=== PATIENT | male | born 1970 | race Two or more races ===

== ENCOUNTER 2017-02-27 06:55 | Observation (INO) | payer OTHER ==
[2017-02-27] MEDS ORDERED: IOPAMIDOL 370 (76%) 100 ML VIAL IV ONE (06:56)
[2017-02-27] MEDS ORDERED: LACTATED RINGERS 1,000 ML ONE ×2 (07:11→09:25)
[2017-02-27] MEDS ORDERED: DIAZEPAM 5 MG/ML SYRINGE 2 ML ONE ×2 (07:11→09:25)
[2017-02-27] MEDS ORDERED: ONDANSETRON 4 MG/2ML 2 ML VIAL ONE (07:11)
[2017-02-27 07:25] LABS: ABSOLUTE NEUTROPHIL COUNT 3.7 K/mm3 (1.8-7.7); BASO # 0.1 K/mm3 (0.0-0.2); BASO % 0.6 % (0.2-1.0); EOS # 0.4 (0.0-0.5); EOS % 3.8 % (0.9-2.9); HEMATOCRIT 48.3 % (32.0-52.0); HEMOGLOBIN 15.3 gm/l (14.0-18.0); IMM NEUT # 0.1 K/mm3 (0-0.2); IMM NEUT% 0.7 % (0-1); LYMPH # 5.7 (1.0-4.8); LYMPH % 52.2 % (15-45); MEAN CELL VOLUME 89.9 fl (80.0-94.0); MEAN CORPUSCULAR HEMOGLOBIN 28.5 pg (27.0-31.0); MEAN CORPUSCULAR HGB CONC 31.7 g/dl (33.0-37.0); MEAN PLATELET VOLUME 9.7 fl (7.4-10.4); MONO # 0.9 (0.0-0.8); MONO % 8.6 % (4-12); NEUT % 34.1 % (43-75); PLATELET COUNT 280 K/mm3 (130-400); RED CELL DISTRIBUTION WIDTH 13.5 % (11.5-14.5)
[2017-02-27 07:46] LABS: ALB/GLOB RATIO 1.1 (>1.0)
[2017-02-27] MEDS ORDERED: POTASSIUM CHLORIDE 20 MEQ TAB.PRT.SR ONE (08:07)
[2017-02-27 09:03] LABS: SPECIFIC GRAVITY 1.025 (1.001-1.030); URINE BILIRUBIN NEGATIVE (NEGATIVE); URINE BLOOD NEGATIVE (NEGATIVE); URINE GLUCOSE (UA) NEGATIVE (NEGATIVE); URINE LEUKOCYTE ESTERASE NEGATIVE (NEGATIVE); URINE NITRITE NEGATIVE (NEGATIVE); URINE PROTEIN 1+ (NEGATIVE); URINE UROBILINOGEN NORMAL (0-1 mg/dl)
[2017-02-27 09:05] LABS: URINE APPEARANCE CLEAR; URINE COLOR YELLOW
[2017-02-27 09:06] LABS: ATYPICAL LYMPHOCYTE 1 %; BAND 0 % (0-10); BASOPHIL 0 % (0-1); EOSINOPHIL 1 % (1-3); LYMPHOCYTE 56 % (15-45); MONOCYTE 12 % (4-12); NEUTROPHILS 30 % (43-75); PLATELET ESTIMATE NORMAL (NORMAL); TOTAL CELLS COUNTED 100
[2017-02-27 09:12] LABS: URINE EPITHELIAL CELLS 0-1 /hpf; URINE RBC RARE /hpf; URINE WBC NEG /hpf
[2017-02-27 09:13] LABS: URINE BACTERIA 0
[2017-02-27] MEDS ORDERED: MECLIZINE HCL 25 MG TABLET ONE (10:35)
--- NOTE | 2017-02-27 11:36 | CT ---
HEAD W/O CON History: Dizziness. Comparison: None. Procedure: 1 mm axial images were obtained through the head from the vertex to the base of the skull without intravenous contrast. Stacked reconstructed 5 mm images were then obtained in the axial, coronal and sagittal planes. Findings: The lateral ventricles are of normal size and shape without evidence of hydrocephalus. No evidence of midline shift is seen. No mass or mass-effect is observed. No evidence of intra- or extra-axial fluid collections or hemorrhage is identified. The booth/white differentiation is within expected. The basilar cisterns remain uneffaced. The posterior fossa structures are unremarkable. No acute osseous abnormalities are identified. There is evidence of frontal and ethmoid sinus disease. Impression: 1. No findings of acute intracranial hemorrhage. 2. Frontal and ethmoid sinus disease.
--- NOTE | 2017-02-27 11:43 | CT ---
CTA HEAD W/ POST PROCESS History: Vertigo. Comparison: None. Procedure: 1 mm axial images were obtained through the head following the administration of 100cc's of Isovue-370 intravenous contrast. Stacked reconstructed 3 mm images were then photographed in the axial, coronal and sagittal planes. 3-D reconstructed MIP images were also performed on the scanner workstation. Findings: The orbits appear to be grossly unremarkable. There is evidence of maxillary, frontal and ethmoid sinus disease. The parotid glands and posterior pharyngeal soft tissues appear to be unremarkable. There is a normal course and caliber of the intracranial carotid arteries. The middle and anterior cerebral branches appear to be appropriate. No focal aneurysm or stenosis is observed. There is no pruning of the distal middle cerebral artery branches identified. The vertebral arteries demonstrate a mildly dominant right vertebral artery. The superior portion of the left vertebral artery appears to be of smaller caliber than the remainder of the left vertebral artery, though this is likely congenital finding. The basilar artery is of normal caliber. No basilar tip aneurysm is seen. The posterior cerebral vessels appear to be appropriate. Impression: 1. Frontal, ethmoid and maxillary sinus disease. 2. No focal stenosis or aneurysm visualized.
--- NOTE | 2017-02-27 11:49 | CT ---
CTA CAROTID W/ POST PROCESS History: Vertigo. Comparison: None. Procedure: 1 mm axial images were obtained through the neck following the administration of 80cc's of Isovue-370 intravenous contrast. Stacked reconstructed 3 mm images were then photographed in the axial, coronal and sagittal planes. 3-D reconstructed MIP images were also performed on the scanner workstation. Findings: Images demonstrate a normal appearance of the thyroid gland. No enlarged cervical chain adenopathy is seen. The parotid and submandibular glands appear to be appropriate. The visualized mediastinum appears to be appropriate. The visualized lung quach are unremarkable though visualization is limited due to what appears to be respiratory motion artifact. Little significant atherosclerotic disease is observed involving the aorta and great vessel branches. The subclavian artery appears to be of normal contour with no focal stenosis identified. The left common carotid artery also demonstrates a normal course and caliber. There is no significant disease identified within the internal or external carotid branches. The distal portion of the internal carotid artery is unremarkable. The innominate artery and right subclavian artery are appropriate. The right common carotid artery demonstrates a normal course and caliber. No significant disease is identified at the carotid bifurcation. The internal and external carotid branches are widely patent. The vertebral arteries demonstrates slight dominance of the right vertebral artery. Both vertebral arteries appear to be patent. There is note made of decreased caliber of the terminal aspect of the left vertebral artery prior to the origination of the basilar artery, though this is likely congenital. No focal stenosis is visualized. Impression: 1. No significant atherosclerotic disease observed. There is no focal arterial stenosis identified. 2. 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 3. Pansinus disease.
--- NOTE | 2017-02-27 12:51 | RAD ---
History: Vertigo. Comparison: 04/24/2009. Technique: 2 views Findings: Examination demonstrates a low inspiratory volume. The heart size appears to be stable. No consolidation, effusion or pneumothorax is visualized. The hilar and mediastinal structures are intact. Impression: 1. A low inspiratory volume. 2. An otherwise negative two-view chest.
[2017-02-27] MEDS ORDERED: BISACODYL 10 MG SUP PR PRN (14:19)
[2017-02-27] MEDS ORDERED: BLISTEX LIPSTICK 1 EACH TP PRN (14:19)
[2017-02-27] MEDS ORDERED: CALCIUM CARBONATE 500 MG TAB.CHEW PO PRN (14:19)
[2017-02-27] MEDS ORDERED: BISACODYL 5 MG TABLET.EC PO PRN (14:19)
[2017-02-27] MEDS ORDERED: MAGNESIUM HYDROXIDE 30 ML UDCUP PO PRN (14:19)
[2017-02-27] MEDS ORDERED: MENTHOL/CETYLPYRD 1 EACH LOZENGE PO PRN (14:19)
[2017-02-27] MEDS ORDERED: ACETAMINOPHEN 325 MG TABLET PO PRN (14:19)
[2017-02-27] MEDS ORDERED: SODIUM CHLORIDE 0.9% 100 ML IV PRN (14:19)
[2017-02-27] MEDS ORDERED: MECLIZINE HCL 25 MG TABLET PO PRN (14:21)
[2017-02-27] MEDS ORDERED: ONDANSETRON 4 MG/2ML 2 ML VIAL IV PRN (14:21)
[2017-02-27] MEDS ORDERED: SCOPOLAMINE 1.5 MG/72 HR 1 EACH PATCH TD SCH (14:30)
[2017-02-27] MEDS ORDERED: SODIUM CHLOR 0.9% w 40mEq KCL 1,000 ML IV SCH (14:30)
[2017-02-27] MEDS ORDERED: PUMP TUBING ONE (14:41)
[2017-02-27 14:49] VITALS: BMI 44.7
[2017-02-27] MEDS: DOCUSATE SODIUM 100 MG CAPSULE PO SCH (21:33)
[2017-02-28 07:10] LABS: ABSOLUTE NEUTROPHIL COUNT 7.3 K/mm3 (1.8-7.7); BASO # 0.1 K/mm3 (0.0-0.2); BASO % 0.5 % (0.2-1.0); EOS # 0.2 (0.0-0.5); EOS % 1.3 % (0.9-2.9); HEMATOCRIT 45.4 % (32.0-52.0); HEMOGLOBIN 14.9 gm/l (14.0-18.0); IMM NEUT% 0.3 % (0-1); LYMPH # 3.1 (1.0-4.8); LYMPH % 27.2 % (15-45); MEAN CELL VOLUME 89.2 fl (80.0-94.0); MEAN CORPUSCULAR HEMOGLOBIN 29.3 pg (27.0-31.0); MEAN CORPUSCULAR HGB CONC 32.8 g/dl (33.0-37.0); MEAN PLATELET VOLUME 9.7 fl (7.4-10.4); MONO # 0.8 (0.0-0.8); MONO % 6.9 % (4-12); NEUT % 63.8 % (43-75); PLATELET COUNT 261 K/mm3 (130-400); RED CELL DISTRIBUTION WIDTH 13.8 % (11.5-14.5)
[2017-02-28 07:29] LABS: CALCIUM 8.8 mg/dL (8.6-10.3)
[2017-02-28 07:35] VITALS: BP 115/57
--- NOTE | 2017-02-28 07:59 | HP ---
SELAM ESTRADA [id number] DATE OF ADMISSION: February 27, 2017 CHIEF COMPLAINT: Dizziness. HISTORY OF PRESENT ILLNESS: The patient is a 46-year-old male without chronic medical conditions who presented to the [facility] Emergency Department with complaints of vertigo symptoms which started upon awakening this morning. He reports that he has been having a spinning sensation which is constant. He gets extremely nauseated whenever he sits up. His symptoms do not seem to be affected as much by head movements from left to right but definitely when he sits up he develops worsening symptoms of nausea and diaphoresis. He reports about five episodes of emesis so far today. He spent about five hours in the emergency department in an attempt to get his symptoms resolved, but continued to have severe nausea and vertigo despite several doses of diazepam and meclizine. He was referred to the hospitalist service for observation. REVIEW OF SYSTEMS: His review of systems is negative for any fevers or chills. He has had no recent upper respiratory symptoms. He had some transient right ear pain about a week ago but nothing persistent, no sore throat. He has had no chest pain, shortness of breath or palpitations. No heartburn symptoms, no focal abdominal pain, no hematemesis or melena, no diarrhea or constipation. No complaints of headaches, fainting, blackouts or seizures. No urinary complaints. His review of systems is otherwise negative. PAST MEDICAL HISTORY: Is negative for any chronic medical conditions except for some mild reflux and seasonal allergic rhinitis. He denies any previous hospitalizations. PAST SURGICAL HISTORY: Negative. ALLERGIES: NO KNOWN DRUG ALLERGIES. CURRENT MEDICATIONS: None. FAMILY HISTORY: Positive for a mother with diabetes. SOCIAL HISTORY: He is . They have two children. He quit smoking about 20 years ago after a 7 pack-year history of smoking. He drinks alcohol just occasionally. Denies any illicit drug use. His primary care provider is Booker Burks nurse practitioner. PHYSICAL EXAMINATION: VITAL SIGNS: Temperature is 97.5, respirations 16, pulse 97, blood pressure 147/94. GENERAL: This is an obese male in no acute distress. HEENT: Shows pupils equal, round and reactive to light. Extraocular movements are intact. Tympanic membranes are clear bilaterally. Moist, pink oral mucosa is noted. NECK: Nontender, without lymphadenopathy, thyromegaly or carotid bruits. CHEST: Lungs are clear to auscultation bilaterally. CARDIOVASCULAR: Exam reveals a regular rate and rhythm without a murmur. ABDOMEN: Is obese, soft, nontender, nondistended with positive bowel sounds. EXTREMITIES: Show no peripheral edema. Dorsalis pedis pulses are 2+ in both feet. NEUROLOGIC: Cranial nerves II through XII are intact. No focal weakness or abnormalities are seen. DIAGNOSTIC IMAGING STUDIES: Include: 1. CTA of the neck and the head. 2. Brain CT. 3. Chest x-ray. With no acute findings identified. LABORATORY STUDIES: Included a CBC with a white count mildly elevated at 11,000. Hemoglobin was 15.3, platelet count was 280,000. Differential showed 30% neutrophils, 0 bands, 56% lymphocytes, 3.8% eosinophils. Chemistry profile showed a sodium of 136, mild hypokalemia with a potassium of 3.2. Carbon dioxide was normal 23. BUN was normal at 17 with a creatinine of 0.8. He did have some hyperglycemia with a glucose of 178. It is unclear if that was as fasting sample. His troponin I was less than 0.01. ASSESSMENT AND PLAN: 1. He will be referred to the hospitalist service for observation. 2. He will be given potassium replacement and IV fluids. 3. We will get a fasting metabolic panel in the morning to reassess his glucose and screen for diabetes. He is at risk for diabetes because of his severe obesity and his family history. 4. For his vertigo which I suspect is benign and positional, he will be given a scopolamine patch and meclizine as needed. 5. Other diagnoses include nausea and vomiting likely due to the vertigo. We will ask physical therapy to evaluate and treat the patient tomorrow with anticipated discharge tomorrow. cc: Booker Burks N.P.
[2017-02-28] MEDS: DOCUSATE SODIUM 100 MG CAPSULE PO SCH (10:10)
--- NOTE | 2017-02-28 13:20 | DS ---
ANTELMO POSADAS SELAM [id number] DATE OF ADMISSION: February 27, 2017 DATE OF DISCHARGE: February 28, 2017 DISCHARGE DIAGNOSES: Vertigo, suspect viral etiology versus benign positional vertigo. OTHER DIAGNOSES: Include: 1. Nausea and vomiting with moderate dehydration. 2. Obesity. 3. Hypokalemia probably due to gastrointestinal losses. 4. Hyperglycemia thought to be due to stress. SUMMARY OF ADMISSION AND HOSPITAL COURSE: The patient is a 46-year-old male who awoke with vertigo symptoms and intractable vomiting. He threw up about five times prior to referral to the hospitalist service for observation. He was monitored in the emergency department for about six hours, given several doses of diazepam, including meclizine and fluids, but his symptoms persisted so he was monitored in the hospital overnight on a scopolamine patch. He had no further complaints of vomiting or vertigo after the scopolamine was placed. He did get potassium replacement for a potassium level of 3.2 on admission. He had a glucose level elevated at 178 on admission. Fasting glucose the following morning was 108, and his potassium level improved to 4.0. He is felt to be medically stable for discharge. PHYSICAL EXAM: VITAL SIGNS: Vitals at discharge showed a temperature of 97.9, pulse 78, blood pressure is 115/57, respirations 18, oxygen saturation 94% on room air. Body mass index 44.7, weight is 122 kilograms. GENERAL: This is an obese male in no acute distress. HEENT: Pupils equal, round and reactive to light. Extraocular movements are intact. No nystagmus is present. NECK: Supple without lymphadenopathy or thyromegaly. LUNGS: Are clear to auscultation bilaterally. CARDIOVASCULAR: Exam reveals a regular rate and rhythm without a murmur. ABDOMEN: Is soft, nontender, nondistended with positive bowel sounds. DIAGNOSTIC IMAGING STUDIES: In the emergency department included a CTA of the head and neck as well as a brain CT. No acute findings were found. DISPOSITION: Home. DISCHARGE CONDITION: Good. REFERRALS: He is given a work release starting on February 27, 2017 lasting through March 01, 2017 with a return to work on March 02, 2017. DISCHARGE MEDICATIONS: He is prescribed a discharge medication of scopolamine patch 1.5 mg every 72 hours. Change every 72 hours as needed. He was discharged with a patch on his ear and do not anticipate he will need to get the prescription filled, but in case he will have it. DISCHARGE DIET: He will be on a regular diet. FOLLOWUP: He will follow up with his primary care provider, Booker Burks, nurse practitioner, as needed on March 11, 2017 at 11:00 a.m. Cc: Booker Burks N.P.
== END 2017-02-28 12:05 | disposition home or self-care (01) ==
LOC: ED 06:55 → MS 13:46
PROVIDERS: ADMIT Family Medicine; ATTEND Family Medicine
DX: R42 Dizziness and giddiness (principal); R11.2 Nausea with vomiting, unspecified; E86.0 Dehydration; E66.9 Obesity, unspecified; E87.6 Hypokalemia; R73.9 Hyperglycemia, unspecified